=== PATIENT | female | born 2000 | race Two or more races ===

== ENCOUNTER 2025-01-11 05:42 | Emergency (ER) | payer MEDICAID, OTHER ==
[~2025-01-11] VITALS: Ht 157.5 cm; Wt 50.0 kg
[2025-01-11 06:57] VITALS: BP 116/64; PULSE 74; RESP 17; TEMP 98.2; O2SAT 100
[2025-01-11] MEDS ORDERED: GABA-1308 PO (07:17)
--- NOTE | 2025-01-11 07:20 | ED.PDOC ---
Musculoskeletal HPI Comments This is a 24-year-old female with no MHx that presents with a chief complaint of atraumatic left leg pain located to the lateral aspect of the calf near the gastrocnemius muscle lateral head. Onto started last night at approximately 11:00 p.m., pain was described as a sharp itching sensation that lasted sec and resolved spontaneously. 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 Family History Family History: Reviewed,noncontributory to illness Social History Smoker: Non-Smoker Alcohol: Denies ETOH Use Drugs: Denies Drug Use All Other Systems: Reviewed and Negative (Per HPI) Physical Exam General Appearance: No Apparent Distress, Normal HEENT: Normal ENT Inspection, Pharynx Normal, TMs Normal Neck: Full Range of Motion, Non-Tender, Normal, Normal Inspection Respiratory: Chest Non-Tender, Lungs Clear, No Accessory Muscle Use, No Respiratory Distress, Normal Breath Sounds Cardiovascular: No Edema, No JVD, No Murmur, No Gallop, Normal Peripheral Pulses, Regular Rate/Rhythm Breast Exam: Deferred Gastrointestinal: No Organomegaly, Non Tender, No Pulsatile Mass, Normal Bowel Sounds, Soft Genitalia: Deferred Pelvic: Deferred Rectal: Deferred Extremities: No calf tenderness, Normal capillary refill, Normal inspection, Normal range of motion, Non-tender, No pedal edema Musculoskeletal : Apperance: Normal Neurologic: Alert, debeader II-XII nml as Tested, No Motor Deficits, Normal Affect, Normal Mood, No Sensory Deficits Cerebellar Function: Normal Reflexes: Normal Skin: Dry, Normal Color, Warm Lymphatic: No Adenopathy Was a procedure done? Was a procedure done?: No Images 1 - Gross abnormality on inspection. No edema erythema ecchymosis open wounds. No TTP. Differential Diagnosis EXT Differential Diagnosis: Deep Vein Thrombosis, Sprain, Strain X-Ray, Labs, Meds, VS Vital Signs Date Time Temp Pulse Resp B/P (MAP) Pulse Ox O2 Delivery O2 Flow Rate FiO2 01/11/25 06:57 74 17 100 Room Air 01/11/25 06:57 98.2 74 17 116/64 (81) 100 98.2 01/11/25 05:58 98.7 77 18 123/47 (72) 100 98.7 X-Ray, Labs, Meds, VS Comment The patient presents with signs and symptoms concerning for RLS Also considered deep venous thrombosis this is less likely as well score is negative for DVT. Patient declined venous ultrasound at this time. Patient denied any shortness of breath, dyspnea on exertion. Was not hypoxic therefore labs and imaging were not ordered Time of 1ST Reevaluation: 07:09 Reevaluation 1ST: Improved Patient Education/Counseling: Diagnosis, Treatment Family Education/Counseling: Diagnosis, Treatment Departure 1 Departure Time of Disposition: 07:20 Impression: Primary Impression: Leg pain Qualified Codes: M79.605 - Pain in left leg Disposition: 01 HOME / SELF CARE / HOMELESS Condition: Stable e-Prescriptions Gabapentin (Gabapentin) 100 Mg Cap 1 CAP PO QHSP PRN for 30 Days, #90 CAP 0 Refills Prov: ANTELMO GOMEZ NP 01/11/25 Critical Care Note Critical Care Time?: No Stability Stability form required: No Heart Score Heart Score: Heart Score Response (Comments) Value History N/A 0 EKG N/A 0 Age N/A 0 Risk Factors N/A 0 Troponin N/A 0 Total 0 ANTELMO GOMEZ NP January 11, 2025 07:20
== END 2025-01-11 07:31 | disposition home or self-care (01) ==
LOC: ER 05:42
DX: M79.605 Pain in left leg (principal)